=== PATIENT | female | born 1975 | race Caucasian/White ===

== ENCOUNTER 2017-01-12 09:05 | Emergency (ER) | payer BC ==
[2017-01-12 10:35] LABS: HEMOGLOBIN 13.3 gm/dl (12.3-15.3); RED BLOOD COUNT 4.47 M/UL (4.00-5.10); WHITE BLOOD COUNT 5.6 K/UL (4.5-11.0)
[2017-01-12 10:54] LABS: BUN/CREATININE RATIO 11 (0-10)
[2017-01-12 16:09] LABS: BUN/CREATININE RATIO 11 (0-10)
== END 2017-01-12 16:35 | disposition home or self-care (01) ==
LOC: ER1 09:05
PROVIDERS: Physician Assistant
DX: J10.1 Influenza due to other identified influenza virus with other respiratory manifestations (principal); F17.200 Nicotine dependence, unspecified, uncomplicated; E87.6 Hypokalemia; I10 Essential (primary) hypertension; E78.5 Hyperlipidemia, unspecified; E11.9 Type 2 diabetes mellitus without complications
CPT/HCPCS: 36415; 71020; 80048; 80053; 81001; 83690; 85025; 87081; 87880; 94664; 96361; 96374; 99283; J1885; J3480; J7030

== ENCOUNTER 2017-02-14 08:23 | Emergency (ER) | payer BC | END 2017-02-14 10:14 | disposition home or self-care (01) | LOC: ER1 08:23 | DX: S80.12XA Contusion of left lower leg, initial encounter (principal); S80.212A Abrasion, left knee, initial encounter; S90.811A Abrasion, right foot, initial encounter; L03.90 Cellulitis, unspecified; E11.628 Type 2 diabetes mellitus with other skin complications; L03.116 Cellulitis of left lower limb; E07.9 Disorder of thyroid, unspecified; Z23 Encounter for immunization; E78.5 Hyperlipidemia, unspecified; F17.200 Nicotine dependence, unspecified, uncomplicated; X50.1XXA Overexertion from prolonged static or awkward postures, initial encounter; Y92.009 Unspecified place in unspecified non-institutional (private) residence as the place of occurrence of the external cause; Z79.84 Long term (current) use of oral hypoglycemic drugs; Z79.899 Other long term (current) drug therapy | CPT/HCPCS: 73610; 73630; 90471; 90715; 99283 ==

== ENCOUNTER 2022-01-04 06:52 | Emergency (ER) | payer BC, OTHER ==
[2022-01-04 07:53] LABS: HEMOGLOBIN 13.8 gm/dl (12.3-15.3); RED BLOOD COUNT 4.27 M/UL (4.00-5.10); WHITE BLOOD COUNT 8.8 K/UL (4.5-11.0)
[2022-01-04 08:16] LABS: BUN/CREATININE RATIO 13 (0-10)
== END 2022-01-04 10:55 | disposition home or self-care (01) ==
LOC: ER1 06:52
PROVIDERS: Emergency Medicine
DX: R07.89 Other chest pain (principal); E87.5 Hyperkalemia; R51.9 Headache, unspecified; E11.9 Type 2 diabetes mellitus without complications; I10 Essential (primary) hypertension
CPT/HCPCS: 71045; 80053; 82550; 82553; 83874; 84484; 85025; 85610; 85730; 93005; 99285

== ENCOUNTER 2022-06-16 10:31 | Emergency (ER) | payer BC, OTHER ==
[~2022-06-16 10:31] MED LIST: CYCLOBENZAPRINE10 MG PO; IBUPROFEN600 MG PO
[2022-06-16 11:25] LABS: RED BLOOD COUNT 4.5 M/UL (4.00-5.10); WHITE BLOOD COUNT 8.4 K/UL (4.5-11.0)
== END 2022-06-16 14:39 | disposition home or self-care (01) ==
LOC: ER1 10:31
PROVIDERS: Physician Assistant
DX: J06.9 Acute upper respiratory infection, unspecified (principal); Z20.822 Contact with and (suspected) exposure to COVID-19; N18.30 Chronic kidney disease, stage 3 unspecified; E11.22 Type 2 diabetes mellitus with diabetic chronic kidney disease; I12.9 Hypertensive chronic kidney disease with stage 1 through stage 4 chronic kidney disease, or unspecified chronic kidney disease
CPT/HCPCS: 0240U; 80048; 81001; 85025; 96374; 99283; J1885